=== PATIENT | male | born 2000 | race Two or more races ===

== ENCOUNTER 2023-03-30 14:16 | Outpatient (REF) | payer OTHER, SELFPAY ==
--- NOTE | ~2023-03-30 | MR_ITS ---
EXAMINATION: MRI LEFT ANKLE WITHOUT CONTRAST CLINICAL INDICATION: Unspecified fracture of talus. COMPARISON: None available. TECHNIQUE: Multiplanar MR imaging was obtained through the left ankle without contrast on a 1.5 Porsha magnet. FINDINGS: ACHILLES TENDON: Normal. OTHER TENDONS: Intact. LIGAMENTS: Anterior talofibular ligament appears thinned and low in signal intensity, potentially the result of an old sprain. No acute tears. There is edema signal around the anterior tibiofibular and posterior tibiofibular ligaments which likely corresponds to a mild sprain. No discrete tears in this region. There is associated reactive edema signal at the posterior margin of the tibial plateau at Volkmann's tubercle. Normal calcaneofibular ligament. Normal anterior and posterior tibiofibular ligament. The deltoid and spring ligaments are intact. BONE AND ARTICULAR CARTILAGE: At the posteromedial margin of the talar dome, there is a 1 x 0.6 cm focus of high-grade cartilage loss with underlying cortical irregularity and subarticular sclerosis. There is an incomplete rim of increased T2 signal intensity in this region, most pronounced posteriorly, as can be seen with fragment instability. There is an osseous contusion along the posterior margin of the tibial plafond at Volkmann's tubercle. A focal contusion is also suspected at the anterior margin of the talar dome. No additional talocrural osteochondral injuries. 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 Small marginal osteophytes are present in the dorsal aspect of the talonavicular joint without significant cartilage loss. Joints are otherwise relatively well preserved. JOINT FLUID AND SOFT TISSUES: Trace talocrural joint effusion. Mild periarticular soft tissue edema, most pronounced anterolaterally. PLANTAR FASCIA: Normal. SINUS TARSI AND TARSAL TUNNEL: A flexor digitorum accessorius longus muscle is noted overlying the tibial nerve at the entrance to the tarsal tunnel. Tarsal tunnel is otherwise unremarkable. Sinus tarsi is normal. MR/MR ankle LT wo con IMPRESSION: 1. A 1 x 0.6 cm osteochondral injury at the posteromedial margin of the talar dome with an incomplete rim of subchondral edema and cystic change, concerning for fragment instability. 2. Osseous contusions at the posterior margin of the tibial plafond and at the anterior margin of the talar dome. 3. Mild sprains of the anterior and posterior tibiofibular ligaments. 4. 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 5. Attenuated anterior talofibular ligament, likely the result of an old sprain. No acute tears. 6. Accessory flexor digitorum accessorius longus muscle at the entrance to the tarsal tunnel.
== END 2023-03-30 14:17 | disposition home or self-care (01) ==
LOC: HO.MRI 14:16
PROVIDERS: Visit Provider Family Medicine Sports Medicine
DX: S92.102A Unspecified fracture of left talus, initial encounter for closed fracture (principal); X58.XXXA Exposure to other specified factors, initial encounter; Y93.9 Activity, unspecified; Y92.9 Unspecified place or not applicable; Y99.9 Unspecified external cause status
CPT/HCPCS: 73721